=== PATIENT | female | born 1975 | race Two or more races ===

== ENCOUNTER 2018-08-20 13:39 | Emergency (ER) | payer MEDICAID, OTHER ==
[~2018-08-20] VITALS: Ht 160 cm; Wt 77.1 kg
[~2018-08-20 13:39] MED LIST: ALBUPOW26; CIPR-173 OR; DOXY100T51 OR; PREN-96 PO
[2018-08-20 14:15] VITALS: BP 117/75
[2018-08-20] MEDS ORDERED: SODIUM CHLORIDE 0.9% 1,000 ML IV ONE (14:30)
[2018-08-20 16:04] LABS: Urine Bacteria FEW /hpf (None Seen); Urine Blood Negative /uL (Negative); Urine Specific Gravity 1.007 (1.001-1.035); Urine WBC 1 /hpf (0 - 5)
== END 2018-08-20 16:49 | disposition home or self-care (01) ==
LOC: ER 13:39 → EDBD 13:39 → ER 16:49
DX: R55 Syncope and collapse (principal); J45.909 Unspecified asthma, uncomplicated
CPT/HCPCS: 70450; 81001; 82962; 93005; 94761; 99284; J7030

== ENCOUNTER 2019-01-21 08:00 | Emergency (ER) | payer MEDICARE, MEDICAID ==
[~2019-01-21] VITALS: Ht 157.5 cm; Wt 90.3 kg
[2019-01-21] MEDS ORDERED: SODIUM CHLORIDE 0.9% 500 ML IV ONE (09:00)
[2019-01-21] MEDS ORDERED: IPRATROPIUM BROM 0.5 MG/2.5ML INH SOL NEB ONE (09:00)
[2019-01-21] MEDS ORDERED: methylPREDNISolone SOD SUCC 125 MG/2 ML VL IV ONE (09:00)
[2019-01-21] MEDS ORDERED: AZITHROMYCIN 500MG/ 250ML 250 ML IV ONE (09:00)
[2019-01-21] MEDS ORDERED: cefTRIAXone 1GM/50ML D5W 50 ML IV ONE (09:00)
[2019-01-21] MEDS ORDERED: ALBUTEROL SULF 2.5 MG/0.5ML(0.5%) NEB SOLN NEB ONE (09:00)
[2019-01-21 09:23] LABS: Basophils # (auto) 0.1 uL; Basophils % (auto) 0.8 % (0.0-2.0); Eosinophils # (auto) 0.2 uL; Eosinophils % (auto) 1.3 % (0.0-7.0); Hematocrit 42.1 % (36.0-46.0); Hemoglobin 13.6 g/dL (12.2-16.2); Lymphocytes # (auto) 1.6 uL; Lymphocytes % (auto) 12.1 % (10.0-50.0); Mean Corpuscular Hgb Conc. 32.3 g/dL (32.0-36.0); Mean Corpuscular Volume 83.6 fL (80.0-100.0); Monocytes # (auto) 1.2 uL; Monocytes % (auto) 9.3 % (0.0-12.0); Neutrophils # (auto) 10.1 uL; Neutrophils % (auto) 76.5 % (37.0-80.0); Platelet Count (auto) 272 10^3/uL (140-450); Red Blood Cells 5.03 10^6/uL (4.0-5.20); Red Cell Distribution Width 16.9 % (11.8-14.3); White Blood Cell 13.2 10^3/uL (4.4-10.8)
[2019-01-21 09:40] LABS: Albumin 3.3 g/dL (3.4-5.0); Calcium 8.7 mg/dL (8.5-10.1); Potassium 3.3 mmol/L (3.5-5.1)
[2019-01-21 09:42] LABS: BUN/Creatinine Ratio 12.7
[2019-01-21 09:44] LABS: Bilirubin, Total 0.8 mg/dL (0.2-1.0); Total Protein 7.8 g/dL (6.4-8.2)
[2019-01-21 13:03] VITALS: BP 118/64
== END 2019-01-21 13:21 | disposition home or self-care (01) ==
LOC: ER 08:00
DX: J18.9 Pneumonia, unspecified organism (principal); J45.909 Unspecified asthma, uncomplicated
CPT/HCPCS: 36415; 71046; 80053; 81025; 83605; 85025; 87040; 87070; 87205; 94640; 96365; 96366; 96368; 96375; 99284; J0456; J0696; J2930; J7030; J7611; J7644

== ENCOUNTER → 2019-11-14 | Emergency (ER) | payer MEDICARE, MEDICAID ==
[~2019-11-14] VITALS: Ht 160 cm; Wt 98.4 kg
[~2019-11-14] MED LIST changes: +ALBUTEROL SULF 2.5 MG/0.5ML(0.5%) NEB SOLN NEB ONE; +IPRATROPIUM BROM 0.5 MG/2.5ML INH SOL NEB ONE
[2019-11-14 21:04] VITALS: BP 148/78
== END | disposition home or self-care (01) ==
LOC: ER 20:44
DX: J45.901 Unspecified asthma with (acute) exacerbation (principal)
CPT/HCPCS: 94640; 99283; J7644

== ENCOUNTER 2020-01-04 22:52 | Emergency (ER) | payer MEDICARE, MEDICAID ==
[~2020-01-04] VITALS: Ht 160 cm; Wt 95.3 kg
[~2020-01-04 22:52] MED LIST changes: -ALBUTEROL SULF 2.5 MG/0.5ML(0.5%) NEB SOLN NEB ONE; -IPRATROPIUM BROM 0.5 MG/2.5ML INH SOL NEB ONE
[2020-01-05 03:03] VITALS: BP 153/92
== END 2020-01-05 05:50 | disposition home or self-care (01) ==
LOC: ER 22:57
DX: J45.909 Unspecified asthma, uncomplicated (principal); Z20.828 Contact with and (suspected) exposure to other viral communicable diseases
CPT/HCPCS: 71045; 99284; C9803; U0003; 36415

== ENCOUNTER 2020-05-14 18:13 | Emergency (ER) | payer MEDICARE, MEDICAID ==
[~2020-05-14] VITALS: Ht 160 cm; Wt 87.5 kg
[2020-05-14 23:47] VITALS: BP 160/88
== END 2020-05-14 23:51 | disposition home or self-care (01) ==
LOC: ER 18:15
DX: T78.3XXA Angioneurotic edema, initial encounter (principal); T78.40XA Allergy, unspecified, initial encounter; U07.1 COVID-19; E11.9 Type 2 diabetes mellitus without complications; X58.XXXA Exposure to other specified factors, initial encounter; Y93.89 Activity, other specified; Y92.89 Other specified places as the place of occurrence of the external cause; Y99.8 Other external cause status

== ENCOUNTER 2021-07-30 16:38 | Emergency (ER) | payer BC, MEDICAID ==
[~2021-07-30] VITALS: Ht 160 cm; Wt 81.6 kg
[2021-07-30 16:50] VITALS: BP 128/78
[2021-07-30] MEDS ORDERED: KETOROLAC TROMETH 30 MG/ML 1ML VIAL IM ONE (19:15)
[2021-07-30] MEDS ORDERED: ACET-1079 PO (20:53)
[2021-07-30] MEDS ORDERED: IBU600T PO (20:53)
[2021-07-30] MEDS ORDERED: CYCL-614 PO (20:53)
== END 2021-07-30 21:01 | disposition home or self-care (01) ==
LOC: ER 16:38
DX: M62.838 Other muscle spasm (principal); M54.2 Cervicalgia; J45.909 Unspecified asthma, uncomplicated; Z79.2 Long term (current) use of antibiotics; Z79.899 Other long term (current) drug therapy
CPT/HCPCS: 72040; 96372; 99283; J1885

== ENCOUNTER 2021-10-17 03:12 | Emergency (ER) | payer BC, MEDICAID ==
[~2021-10-17] VITALS: Ht 160 cm; Wt 72.6 kg
[~2021-10-17 03:12] MED LIST changes: +ACET-1079 PO; +CYCL-614 PO; +IBU600T PO
[2021-10-17 03:13] VITALS: BP 158/71
[2021-10-17] MEDS ORDERED: ALBUTEROL SULF 2.5 MG/0.5ML(0.5%) NEB SOLN NEB ONE ×2 (03:30→04:30)
[2021-10-17] MEDS ORDERED: IPRATROPIUM BROM 0.5 MG/2.5ML INH SOL NEB ONE ×2 (03:30→04:30)
[2021-10-17] MEDS ORDERED: predniSONE 20 MG TAB PO ONE (04:30)
[2021-10-17] MEDS ORDERED: ALBUAER3 IN (05:10)
[2021-10-17] MEDS ORDERED: PRED20TA2 PO (05:10)
== END 2021-10-17 05:23 | disposition home or self-care (01) ==
LOC: ER 03:12
DX: J45.901 Unspecified asthma with (acute) exacerbation (principal); E11.9 Type 2 diabetes mellitus without complications
CPT/HCPCS: 94640; 99284; J7512; J7644

== ENCOUNTER 2022-05-10 23:45 | Emergency (ER) | payer OTHER, MEDICAID ==
[~2022-05-10] VITALS: Ht 162.6 cm; Wt 90.0 kg
[2022-05-10 23:45] VITALS: BP 173/95
[~2022-05-10 23:45] MED LIST changes: +ALBUAER3 IN; +PRED20TA2 PO
[2022-05-11 02:53] LABS: Basophils # (auto) 0.1 10 ^3/uL (0-0.2); Basophils % (auto) 0.7 % (0.0-2.0); Eosinophils # (auto) 0.1 10 ^3/uL (0-0.8); Eosinophils % (auto) 1.1 % (0.0-7.0); Hematocrit 41.6 % (36.0-46.0); Hemoglobin 14.3 g/dL (12.2-16.2); Lymphocytes # (auto) 1.8 10 ^3/uL (0.4-5.4); Lymphocytes % (auto) 20.2 % (10.0-50.0); Mean Corpuscular Hemoglobin 30.4 pg (28.0-32.0); Mean Corpuscular Hgb Conc. 34.3 g/dL (32.0-36.0); Mean Corpuscular Volume 88.4 fL (80.0-100.0); Monocytes # (auto) 0.6 10 ^3/uL (0-1.3); Monocytes % (auto) 6.3 % (0.0-12.0); Neutrophils # (auto) 6.4 10 ^3/uL (1.6-8.6); Neutrophils % (auto) 71.7 % (37.0-80.0); Nucleated Red Blood Cells % 0.2 %; Red Cell Distribution Width 13.9 % (11.8-14.3); White Blood Cell 8.9 10^3/uL (4.4-10.8)
[2022-05-11 03:07] LABS: Albumin 3.5 g/dL (3.4-5.0); Calcium 8.3 mg/dL (8.5-10.1); Potassium 3.5 mmol/L (3.5-5.1)
[2022-05-11 03:08] LABS: Salicylate < 1.7 mg/dL (2.8-20.0)
[2022-05-11 03:09] LABS: Acetaminophen < 2.0 ug/mL (10-30); BUN/Creatinine Ratio 17.4
[2022-05-11 03:11] LABS: Bilirubin, Total 0.4 mg/dL (0.2-1.0); Total Protein 7.2 g/dL (6.4-8.2)
== END 2022-05-11 12:47 | disposition home or self-care (01) ==
LOC: EDBD 23:45 → ER 05-11 00:02
DX: F10.129 Alcohol abuse with intoxication, unspecified (principal); E11.9 Type 2 diabetes mellitus without complications; J45.909 Unspecified asthma, uncomplicated; Z79.2 Long term (current) use of antibiotics; Z79.899 Other long term (current) drug therapy; Y90.6 Blood alcohol level of 120-199 mg/100 ml
CPT/HCPCS: 36415; 80053; 80320; 80329; 85025

== ENCOUNTER 2023-05-27 22:34 | Emergency (ER) | payer OTHER ==
[~2023-05-27] VITALS: Ht 160 cm; Wt 88.9 kg
[2023-05-27] MEDS ORDERED: IPRATROPIUM BROM 0.5 MG/2.5ML INH SOL NEB ONE (23:15)
[2023-05-27] MEDS ORDERED: ALBUTEROL SULF 2.5 MG/0.5ML(0.5%) NEB SOLN NEB ONE (23:15)
[2023-05-27 23:36] LABS: Hemoglobin 13.7 g/dL (12.2-16.2); White Blood Cell 9.8 10^3/uL (4.4-10.8)
[2023-05-27 23:38] LABS: Hematocrit 42.2 % (36.0-46.0); Mean Corpuscular Hemoglobin 26.3 pg (28.0-32.0); Mean Corpuscular Hgb Conc. 32.4 g/dL (32.0-36.0); Mean Corpuscular Volume 81.4 fL (80.0-100.0); Red Blood Cells 5.19 10^6/uL (4.0-5.20); Red Cell Distribution Width 17.1 % (11.8-14.3)
[2023-05-27 23:42] LABS: Basophils % (manual) 0 (0.0-2.0); Blast Cells 0; Metamyelocytes % 0; Promyelocytes % 0; Reactive Lymphocytes 0
[2023-05-27 23:53] LABS: Alanine Aminotransferase 19 U/L (7-40); Albumin 4.2 g/dL (3.2-4.8); Alkaline Phosphatase 83 U/L (46-116); Anion Gap 3 (5-15); Aspartate Aminotransferase 17 U/L (13-40); BUN/Creatinine Ratio 11.1 (10.0-20.0); Bilirubin, Total 0.5 mg/dL (0.2-1.0); Blood Urea Nitrogen 6 mg/dL (9-23); Calcium 8.9 mg/dL (8.7-10.4); Carbon Dioxide 30 mmol/L (20-30); Chloride 107 mmol/L (98-107); Glucose 110 mg/dL (74-106); Potassium 3.9 mmol/L (3.5-5.1); Sodium 140 mmol/L (136-145)
[2023-05-27 23:54] LABS: Total Protein 7.3 g/dL (5.7-8.2)
[2023-05-28 00:20] LABS: Band Neutrophils % (manual) 9; Eosinophils % (manual) 18 (0-7); Lymphocytes % (manual) 10 (10.0-50.0); Monocytes % (manual) 3 (0-12); Myelocytes % 1
[2023-05-28 00:21] LABS: Platelet Estimate Adequate
[2023-05-28] MEDS ORDERED: DEXTROSE (50%) 50ML SYRG IV PRN (00:30)
[2023-05-28] MEDS ORDERED: CEFTRIAXONE SODIUM 2 GM in D5W 5% 100 ML IV ONE (00:30)
[2023-05-28] MEDS ORDERED: ACETAMINOPHEN 325 MG TAB PO PRN (00:30)
[2023-05-28] MEDS ORDERED: AZITHROMYCIN 500MG/ 250ML 250 ML IV ONE (00:30)
[2023-05-28] MEDS ORDERED: ALBUTEROL SULF 2.5 MG/0.5ML(0.5%) NEB SOLN NEB PRN (00:30)
[2023-05-28] MEDS ORDERED: IPRATROPIUM BROM 0.5 MG/2.5ML INH SOL NEB PRN (00:30)
[2023-05-28] MEDS ORDERED: ONDANSETRON HCL 4 MG/2 ML VIAL IV PRN (00:30)
[2023-05-28 00:59] VITALS: BP 160/95; PULSE 78; RESP 20; TEMP 98; O2SAT 98
[2023-05-28 01:36] VITALS: PULSE 76; RESP 20; O2SAT 97
[2023-05-28] MEDS ORDERED: cefTRIAXone SOD 1,000 MG VL ONE (01:52)
[2023-05-28] MEDS ORDERED: cloNIDine HCL 0.1 MG TAB PO PRN (02:30)
[2023-05-28 02:55] LABS: Rapid Influenza A Negative (Negative); Rapid Influenza B Negative (Negative)
[2023-05-28] MEDS ORDERED: METH4PAK PO (02:55)
[2023-05-28] MEDS ORDERED: BUDE1AER5 IN (02:55)
[2023-05-28] MEDS ORDERED: AUG875T PO (02:55)
[2023-05-28] MEDS ORDERED: ALBUAER3 IN (02:55)
[2023-05-28 02:56] LABS: COVID19 ANTIGEN SOFIA FIA NEGATIVE (NEGATIVE)
[2023-05-28] MEDS ORDERED: methylPREDNISolone SOD SUCC 125 MG/2 ML VL IV ONE (03:15)
[2023-05-28 05:11] VITALS: BP 155/84; PULSE 82; RESP 15; TEMP 98.9; O2SAT 96
[2023-05-28 05:22] LABS: Urine Bacteria FEW /hpf (None Seen); Urine Blood Negative /uL (Negative); Urine Clarity Clear (Clear); Urine Color Colorless (Yellow); Urine Protein, UAD Negative (Negative); Urine Urobilinogen Normal (Negative); Urine WBC 2 /hpf (0 - 5); Urine pH 6.5 (5.0-8.0)
[2023-05-28] MEDS ORDERED: ACCU-CHEK COMFORT CURVE STRIP VI SCH (07:00)
[2023-05-28] MEDS ORDERED: InsuLIN REG 1unit/0.01ml Soln (100units/ml) SC SCH (07:00)
[2023-05-28] MEDS ORDERED: cefTRIAXone 1GM/50ML D5W 50 ML IV SCH (09:00)
[2023-05-28] MEDS ORDERED: AZITHROMYCIN 500MG/ 250ML 250 ML IV SCH (10:00)
== END 2023-05-28 05:15 | disposition home or self-care (01) ==
LOC: ER 22:34
DX: J18.9 Pneumonia, unspecified organism (principal); E11.9 Type 2 diabetes mellitus without complications; J45.909 Unspecified asthma, uncomplicated; R07.89 Other chest pain; Z20.822 Contact with and (suspected) exposure to COVID-19
CPT/HCPCS: 36415; 71045; 80053; 81001; 83605; 83880; 84484; 85007; 85027; 85379; 87040; 87426; 87804; 93005; 94640; 96365; 96366; 96367; 96375; 99285; J0456; J0696; J2930; J7060; J7644

== ENCOUNTER 2024-05-14 22:52 | Emergency (ER) | payer OTHER ==
[~2024-05-14] VITALS: Ht 160 cm; Wt 86.3 kg
[~2024-05-14 22:52] MED LIST changes: +AUG875T PO; +BACDST PO; +BUDE1AER5 IN; +IBUP-1456 PO; +METH4PAK PO
--- NOTE | 2024-05-14 23:13 | ED.PDOC ---
SOB-HPI HPI Comments 48-year-old female came to ER due to shortness of breath. Patient does have history of asthma. States few hours ago, cough with shortness of breath and wheezing. She ran out of albuterol inhalers at home so she decided the to the ER to prevent the asthma for worsening. Patient denies recent fever or sputum production. 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 Family History Family History: Reviewed,noncontributory to illness Social History Smoker: Non-Smoker Alcohol: Denies ETOH Use Drugs: Denies Drug Use Lives In: Home Constitutional: denies: chills, diaphoresis, fatigue, fever, malaise, sweats, weakness, others EENTM: denies: blurred vision, double vision, ear bleeding, ear discharge, ear drainage, ear pain, ear ringing, eye pain, eye redness, hearing loss, mouth pain, mouth swelling, nasal discharge, nose bleeding, nose congestion, nose pain, photophobia, tearing, throat pain, throat swelling, voice changes, others Respiratory: reports: cough, SOB at rest, shortness of breath, wheezing; denies: hemoptysis, orthopnea, SOB with excertion, stridor, others Cardiovascular: denies: chest pain, dizzy spells, diaphoresis, Dyspnea on exertion, edema, irregular heart beat, left arm pain, lightheadedness, palpitations, PND, syncope, others Gastrointestinal: denies: abdomen distended, abdominal pain, blood streaked bowels, constipated, diarrhea, dysphagia, difficulty swallowing, hematemesis, melena, nausea, poor appetite, poor fluid intake, rectal bleeding, rectal pain, vomiting, others Genitourinary: denies: abnormal vagina bleeding, burning, dyspareunia, dysuria, flank pain, frequency, hematuria, incontinence, pain, , vagina discharg e, urgency, others Neurological: denies: dizziness, fainting, headache, left sided numbness, left sided weakness, numbness, paresthesia, pre-existing deficit, right sided numbness, right sided weakness, seizure, speech problems, tingling, tremors, weakness, others Musculoskeletal: denies: back pain, gout, joint pain, joint swelling, muscle pain, muscle stiffness, neck pain, others Integumetry: denies: bruises, change in color, change in hair/nails, dryness, laceration, lesions, lumps, rash, wounds, others Allergic/Immunocompromised: denies: Difficulty Healing, Frequent Infections, Hives, Itching, others Hematologic/Lymphatic: denies: anemia, blood clots, easy bleeding, easy bruising, swollen glands, others Endocrine: denies: excessive hunger, excessive sweating, excessive thirst, excessive urination, flushing, intolerance to cold, intolerance to heat, unexplained weight gain, unexplained weight loss, others Psychiatric: denies: anxiety, bipolar disorder, depression, hopeless, panic d isorder, schizophrenia, sleepless, suicidal, others Physical Exam General Appearance: No Apparent Distress HEENT: Other (Unremarkable) Neck: Full Range of Motion, Normal Inspection Respiratory: No Accessory Muscle Use, No Respiratory Distress, Wheezing Cardiovascular: No Edema, No JVD, Regular Rate/Rhythm Breast Exam: Deferred Gastrointestinal: Non Tender, Soft Genitalia: Deferred Pelvic: Deferred Rectal: Deferred Extremities: Normal inspection, Normal range of motion, Non-tender, No pedal edema Neurologic: Alert (Oriented x4), Normal Affect, Normal Mood, Other (Ambulatory without difficulty. No gross focal deficit.) Cerebellar Function: NOT DONE Reflexes: NOT DONE Skin: Dry, Normal Color, Warm Lymphatic: NOT DONE Was a procedure done? Was a procedure done?: No Differential Dx Differential Diagnosis: Asthma, Bronchitis, COPD, Pneumonia, Respiratory Distress X-Ray, Labs, Meds, VS Vital Signs Date Time Temp Pulse Resp B/P (MAP) Pulse Ox O2 Delivery O2 Flow Rate FiO2 05/15/24 00:55 18 95 Room Air* 0 21 05/14/24 23:26 22 96 Room Air* 0 21 05/14/24 23:05 98.5 79 18 147/70 (95) 93 05/14/24 23:05 18 93 Room Air* 0 21 Current Medications Medications (Trade) Dose Ordered Sig/Tea Route Start Time Stop Time Status Last Admin Albuterol (Ventolin Medneb) 5 mg ONCE ONCE NEB 05/14/24 23:00 05/14/24 23:01 DC 05/14/24 23:26 Ipratropium [place] (Atrovent Medneb) 0.5 mg ONCE ONCE NEB 05/14/24 23:00 05/14/24 23:01 DC 05/14/24 23:26 Dexamethasone Sodium Phosphate (Decadron Injection) 10 mg ONCE ONCE IM 05/14/24 23:00 05/14/24 23:01 DC 05/15/24 00:49 Albuterol (Ventolin Medneb) 5 mg ONCE ONCE NEB 05/15/24 00:45 05/15/24 00:46 DC 05/15/24 00:54 Ipratropium [place] (Atrovent Medneb) 0.5 mg ONCE ONCE NEB 05/15/24 00:45 05/15/24 00:46 DC 05/15/24 00:54 X-Ray, Labs, Meds, VS Comment 48-year-old female with a history of asthma complaining of difficulty breathing after running out of her inhaler Vitals remarkable for oxygen saturation 93% on room air Exam remarkable for wheezing without respiratory distress Rhythm strip independently interpreted by me: Sinus rhythm, rate 79, no ectopy. Patient treated with the following in the ED: Albuterol 5 mg/Atrovent 0.5 mg nebulized x2, dexamethasone 10 mg IM On re-evaluation, patient states she is feeling much better and vitals are stable, including oxygen saturation which is 95% on room air. Hospitalization was considered, however patient had rapid improvement of symptoms with treatment in the ED, and I no longer feel hospitalization is necessary. Patient now appears stable for outpatient treatment with close follow-up with her primary physician. Rx albuterol Time of 1ST Reevaluation: 23:10 Reevaluation 1ST: Unchanged Time of 2ND Reevaluation: 01:11 Reevaluation 2ND: Improved Patient Education/Counseling: Diagnosis, Treatment Family Education/Counseling: No Family Present Departure 1 Departure Time of Disposition: 01:11 Impression: Primary Impression: Asthma exacerbation Qualified Codes: J45.901 - Unspecified asthma with (acute) exacerbation Disposition: 01 HOME / SELF CARE / HOMELESS Condition: Stable Additional Instructions: Follow-up with your primary doctor in 1-2 days. I have prescribed an inhaler. e-Prescriptions Albuterol Sulfate (Albuterol Sulfate Hfa) 108 Mcg/Act Aer 2 PUFF IN Q6HP PRN, #1 AER Prov: PARDEEP HANSON MD 05/15/24 Discharged With: Self Critical Care Note Critical Care Time?: No Stability Stability form required: No Heart Score Heart Score: Heart Score Response (Comments) Value History N/A 0 EKG N/A 0 Age N/A 0 Risk Factors N/A 0 Troponin N/A 0 Total 0 I personally scribed for PARDEEP HANSON MD ([email or web address]) on 05/14/24 at 23:13. Electronically submitted by Sunil Navarro ([email or web address]). PARDEEP HANSON MD May 14, 2024 23:13
[2024-05-14] MEDS: ALBUTEROL SULF 2.5 MG/0.5ML(0.5%) NEB SOLN NEB ONE (23:26)
[2024-05-14] MEDS: IPRATROPIUM BROM 0.5 MG/2.5ML INH SOL NEB ONE (23:26)
[2024-05-15] MEDS: DexAMETHasone SOD PHOS 10MG/1ML VIAL INJ IM ONE (00:49)
[2024-05-15] MEDS: ALBUTEROL SULF 2.5 MG/0.5ML(0.5%) NEB SOLN NEB ONE (00:54)
[2024-05-15] MEDS: IPRATROPIUM BROM 0.5 MG/2.5ML INH SOL NEB ONE (00:54)
[2024-05-15] MEDS ORDERED: ALBU108A5 IN (01:12)
[2024-05-15 01:43] VITALS: BP 133/66; PULSE 96; RESP 18; O2SAT 94
== END 2024-05-15 01:48 | disposition home or self-care (01) ==
LOC: ER 22:52
DX: J45.901 Unspecified asthma with (acute) exacerbation (principal); E11.9 Type 2 diabetes mellitus without complications; Z79.52 Long term (current) use of systemic steroids
CPT/HCPCS: 94640; 96372; 99284; J1100

== ENCOUNTER 2025-04-13 19:48 | Emergency (ER) | payer OTHER ==
[~2025-04-13] VITALS: Ht 157.5 cm; Wt 90.4 kg
[~2025-04-13 19:48] MED LIST changes: +ALBU108A5 IN
[2025-04-13] MEDS ORDERED: methylPREDNISolone SOD SUCC 125 MG/2 ML VL IV ONE (20:15)
--- NOTE | 2025-04-13 20:16 | ED.PDOC ---
History of Present Illness HPI Comments 49F presents to the ER w/ prior MHx of DM, HTN, Thyroid, Asthma and the c/c of SOB. Pt reports on having had SOB which comes/goes and started yesterday associated w/ coughing. Pt notes on having a sudden onset of sharp upper left sided back pain. Denies any symptoms at this time. Patient denies any CP, dizzi ness, numbness, weakness, tingling, fever, chills, or recent fall. Chief Complaint: Shortness of Breath Time Seen by MD: 20:15 Primary Care Provider: UNKNOWN Reviewed Notes: Nurses Notes, Medications, Allergies Allergies: Coded Allergies: NO KNOWN ALLERGIES (Unverified , 12/24/09) Home Meds Active Scripts Azithromycin (Zithromax) 1 Gm Pow, 1 PACK PO ONCE, #1 PACK Prov:ZAHRA ROMERO MD 04/13/25 Methylprednisolone (Medrol Dosepak) 4 Mg Torey, 4 MG PO UD, #21 TAB UAD Prov:ZAHRA ROMERO MD 04/13/25 Albuterol Sulfate (VENTOLIN MDI) 90 Mcg Ih, 90 MCG IN PRN, #1 INH 1 Refill 1-2 puffs PRN Q 4 hours as needed for Shortnesso of breath or wheezing Prov:ZAHRA ROMERO MD 04/13/25 Albuterol Sulfate (Albuterol Sulfate Hfa) 108 Mcg/Act Aer, 2 PUFF IN Q6HP PRN, #1 AER Prov:PARDEEP HANSON MD 05/15/24 Ibuprofen (Ibuprofen) 800 Mg Tab, 1 TAB PO TID, #30 TAB Prov:ALEXIS BARRERA 08/15/23 Sulfamethoxazole W/Trimethopri (Bactrim Ds Tablet) 1 Tab Tb, 1 TAB PO BID, #20 TAB Prov:ALEXIS BARRERA 08/15/23 Budesonide-Formoterol Fumarate (Budesonide/Formoterol Fum 80-4.5 Mcg/Act) 1 Aer Aer, 2 AER IN BID for 30 Days, #1 AER 1 Refill Prov:MIKHAIL CHI MD 05/28/23 Amoxicillin & Pot Clavulanate (AUGMENTIN TABLET) 875 Mg Tb, 875 MG PO BID for 10 Days, #20 TAB Prov:MIKHAIL CHI MD 05/28/23 Prednisone (Prednisone) 20 Mg Tab, 60 MG PO DAILY for 7 Days, #21 MG 0 Refills Prov:MUMTAZ MCINTOSH 10/17/21 Acetaminophen (Tylenol) 325 Mg Tb, 975 MG PO Q6HP PRN for 14 Days, #168 TAB 0 Refills Prov:HILARIO GALVAN DO 07/30/21 Ibuprofen Micronized (MOTRIN TABLET) 600 Mg Tb, 600 MG PO TID PRN for 14 Days, #42 TAB 0 Refills *Black box warning-NSAIDS can increase risk of AR & hypertension, GI irritation, ulceration, bleed, perferation. Do not use post cardiac surgery. Use short duration/lowest effective dose. Prov:HILARIO GALVAN DO 07/30/21 Cyclobenzaprine HCl (Cyclobenzaprine Hydrochlo) 5 Mg Tab, 5 MG PO TID PRN for 7 Days, #21 TAB 0 Refills Prov:HILARIO GALVAN DO 07/30/21 Reported Medications Vit W/ Ferrous Fumara ( One Daily) Daily Tab, 1 TAB PO DAILY, #90 TAB 3 Refills 12/27/13 Ciprofloxacin Hcl (Cipro) 500 Mg Tab, 500 MG OR BID 04/18/11 Doxycycline (Monohydrate) (Avidoxy) 100 Mg Tab, 100 MG OR BID 04/18/11 Albuterol (Albuterol) Pow 12/24/09 Information Source: Patient Mode of Arrival: Ambulatory Severity: Moderate Timing: Hours Duration: Since onset, Hours Prehospital treatment: None Past Medical History PAST MEDICAL HISTORY: Asthma, DM, HTN, Thyroid Surgical History: Denies all surgeries 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 Family History Family History: Reviewed,noncontributory to illness, Unknown Social History Smoker: Non-Smoker Alcohol: Denies ETOH Use Drugs: Denies Drug Use Lives In: Home Constitutional: denies: chills, diaphoresis, fatigue, fever, malaise, sweats, weakness, others EENTM: denies: blurred vision, double vision, ear bleeding, ear discharge, ear drainage, ear pain, ear ringing, eye pain, eye redness, hearing loss, mouth pain, mouth swelling, nasal discharge, nose bleeding, nose congestion, nose pain, photophobia, tearing, throat pain, throat swelling, voice changes, others Respiratory: reports: cough, shortness of breath; denies: hemoptysis, orthopnea, SOB at rest, SOB with excertion, stridor, wheezing, others Cardiovascular: denies: chest pain, dizzy spells, diaphoresis, Dyspnea on exertion, edema, irregular heart beat, left arm pain, lightheadedness, palpitations, PND, syncope, others Gastrointestinal: denies: abdomen distended, abdominal pain, blood streaked bowels, constipated, diarrhea, dysphagia, difficulty swallowing, hematemesis, melena, nausea, poor appetite, poor fluid intake, rectal bleeding, rectal pain, vomiting, others Genitourinary: denies: abnormal vagina bleeding, burning, dyspareunia, dysuria, flank pain, frequency, hematuria, incontinence, pain, , vagina discharge, urgency, others Neurological: denies: dizziness, fainting, headache, left sided numbness, left sided weakness, numbness, paresthesia, pre-existing deficit, right sided numbness, right sided weakness, seizure, speech problems, tingling, tremors, weakness, others Musculoskeletal: denies: back pain, gout, joint pain, joint swelling, muscle pain, muscle stiffness, neck pain, others Integumetry: denies: bruises, change in color, change in hair/nails, dryness, laceration, lesions, lumps, rash, wounds, others Allergic/Immunocompromised: denies: Difficulty Healing, Frequent Infections, Hives, Itching, others Hematologic/Lymphatic: denies: anemia, blood clots, easy bleeding, easy bruising, swollen glands, others Endocrine: denies: excessive hunger, excessive sweating, excessive thirst, excessive urination, flushing, intolerance to cold, intolerance to heat, unexplained weight gain, unexplained weight loss, others Psychiatric: denies: anxiety, bipolar disorder, depression, hopeless, panic disorder, schizophrenia, sleepless, suicidal, others All Other Systems: Reviewed and Negative Physical Exam General Appearance: Moderate Distress HEENT: Normal ENT Inspection, Pharynx Normal, TMs Normal Neck: Full Range of Motion, Non-Tender, Normal, Normal Inspection Respiratory: Chest Non-Tender, Decreased Breath Sounds, No Accessory Muscle Use, Respiratory Distress, Wheezing Cardiovascular: No Edema, No JVD, No Murmur, No Gallop, Normal Peripheral Pulses, Regular Rate/Rhythm Breast Exam: Deferred Gastrointestinal: No Organomegaly, Non Tender, No Pulsatile Mass, Normal Bowel Sounds, Soft Genitalia: Deferred Pelvic: Deferred Rectal: Deferred Extremities: No calf tenderness, Normal capillary refill, Normal inspection, Normal range of motion, Non-tender, No pedal edema Musculoskeletal : Apperance: Normal Neurologic: Alert, cottage cheese maker II-XII nml as Tested, No Motor Deficits, Normal Affect, Normal Mood, No Sensory Deficits Cerebellar Function: Normal Reflexes: Normal Skin: Dry, Normal Color, Warm Lymphatic: No Adenopathy Was a procedure done? Was a procedure done?: No Differential Dx Considerations may include: Asthma exacerbation, asthmatic bronchitis, pneumonia X-Ray, Labs, Meds, VS Vital Signs Date Time Temp Pulse Resp B/P (MAP) Pulse Ox O2 Delivery O2 Flow Rate FiO2 04/13/25 19:52 98.9 89 16 133/93 94 98.9 Lab Test 04/13/25 20:29 Range/Units White Blood Count 8.6 4.4-10.8 10^3/uL Red Blood Count 5.20 4.0-5.20 10^6/uL Hemoglobin 14.7 12.2-16.2 g/dL Hematocrit 44.5 36.0-46.0 % Mean Corpuscular Volume 85.5 80.0-100.0 fL Mean Corpuscular Hemoglobin 28.2 28.0-32.0 pg Mean Corpuscular Hemoglobin Concent 33.0 32.0-36.0 g/dL Red Cell Distribution Width 14.9 H 11.8-14.3 % Platelet Count 247 140-450 10^3/uL Mean Platelet Volume 8.3 6.9-10.8 fL Neutrophils (%) (Auto) 64.6 37.0-80.0 % Lymphocytes (%) (Auto) 23.9 10.0-50.0 % Monocytes (%) (Auto) 6.6 0.0-12.0 % Eosinophils (%) (Auto) 4.2 0.0-7.0 % Basophils (%) (Auto) 0.7 0.0-2.0 % Neutrophils # (Auto) 5.6 1.6-8.6 10 ^3/uL Lymphocytes # (Auto) 2.1 0.4-5.4 10 ^3/uL Monocytes # (Auto) 0.6 0-1.3 10 ^3/uL Eosinophils # (Auto) 0.4 0-0.8 10 ^3/uL Basophils # (Auto) 0.1 0-0.2 10 ^3/uL Nucleated Red Blood Cells 0.1 % Sodium Level 141 136-145 mmol/L Potassium Level 3.8 3.5-5.1 mmol/L Chloride Level 105 98-107 mmol/L Carbon Dioxide Level 27 20-31 mmol/L Anion Gap 9 5-15 Blood Urea Nitrogen 8 L 9-23 mg/dL Creatinine 0.65 0.550-1.02 mg/dL Glomerular Filtration Rate Calc 108 >90 mL/min BUN/Creatinine Ratio 12.3 10.0-20.0 Serum Glucose 131 H 74-106 mg/dL Calcium Level 9.0 8.7-10.4 mg/dL Time of 1ST Reevaluation: 20:45 Reevaluation 1ST: Unchanged Patient Education/Counseling: Diagnosis, Treatment, Prognosis Family Education/Counseling: No Family Present SEPSIS Sepsis Screen Date sepsis recognized/suspect: Apr 13, 2025 Time Sepsis recognized/suspect: 1953 Recent Procedure: No On Antibiotic Therapy: No Respiratory Rate >20: No Heart Rate >90: No Temp<36 C (96.8 F) or >38.3 C: No SBP <90 or MAP <65 mmHG: No New Acute Mental Status Change: No Is the patient on CPAP, BIPAP,: No Physician Orders Med Neb Initial Treatment (04/13/25 20:13) Chest Portable (04/13/25 20:13) Vital Signs Date Time Temp Pulse Resp B/P (MAP) Pulse Ox O2 Delivery O2 Flow Rate FiO2 04/13/25 19:52 98.9 89 16 133/93 94 98.9 Laboratory Tests Test 04/13/25 20:29 White Blood Count 8.6 10^3/uL (4.4-10.8) Departure 1 Departure Time of Disposition: 21:17 Impression: Primary Impression: Asthmatic bronchitis Qualified Codes: J45.41 - Moderate persistent asthma with (acute) exacerbation Disposition: HOME / SELF CARE / HOMELESS Condition: Fair e-Prescriptions Azithromycin (Zithromax) 1 Gm Pow 1 PACK PO ONCE, #1 PACK Prov: ZAHRA ROMERO MD 04/13/25 Methylprednisolone (Medrol Dosepak) 4 Mg Torey 4 MG PO UD, #21 TAB UAD Prov: ZAHRA ROMERO MD 04/13/25 Albuterol Sulfate (VENTOLIN BARBI) 90 Mcg Ih 90 MCG IN PRN, #1 INH 1 Refill 1-2 puffs PRN Q 4 hours as needed for Shortnesso of breath or wheezing Prov: ZAHRA ROMERO MD 04/13/25 Discharged With: Self Critical Care Note Critical Care Time?: No Stability Stability form required: No Heart Score Heart Score: Heart Score Response (Comments) Value History N/A 0 EKG N/A 0 Age N/A 0 Risk Factors N/A 0 Troponin N/A 0 Total 0 I personally scribed for ZAHRA ROMERO MD ([email or web address]) on 04/13/25 at 20:16. Electronically submitted by Ollie Mora ([email or web address]). ZAHRA ROMERO MD Apr 13, 2025 20:16
[2025-04-13 20:43] LABS: Hematocrit 44.5 % (36.0-46.0); Hemoglobin 14.7 g/dL (12.2-16.2); Mean Corpuscular Hemoglobin 28.2 pg (28.0-32.0); Mean Corpuscular Volume 85.5 fL (80.0-100.0); Nucleated Red Blood Cells % 0.1 %
[2025-04-13 20:49] LABS: Chloride 105 mmol/L (98-107); Potassium 3.8 mmol/L (3.5-5.1); Sodium 141 mmol/L (136-145)
[2025-04-13 20:50] LABS: Anion Gap 9 (5-15); Calcium 9.0 mg/dL (8.7-10.4); Carbon Dioxide 27 mmol/L (20-31)
[2025-04-13 20:55] LABS: BUN/Creatinine Ratio 12.3 (10.0-20.0)
[2025-04-13 20:56] LABS: Blood Urea Nitrogen 8 mg/dL (9-23); Glucose 131 mg/dL (74-106)
--- NOTE | 2025-04-13 21:14 | DVH ---
CLINICAL HISTORY: sob TECHNIQUE: Single view of the chest was obtained. COMPARISON: XY CHEST PORTABLE on DOS: 05/27/23, CHEST PORTABLE on DOS: 01/05/20 FINDINGS: The heart size is normal with interstitial thickening. There is bilateral upper lung linear scarring. IMPRESSION: Interstitial thickening, which may represent mild pulmonary vascular congestion or scarring from previous lung injury.
[2025-04-13] MEDS ORDERED: ALBUAER3 IN (21:15)
[2025-04-13] MEDS ORDERED: METH4PAK PO (21:15)
[2025-04-13] MEDS ORDERED: AZIT1POW PO (21:15)
[2025-04-13] MEDS: IPRATROPIUM BROM 0.5 MG/2.5ML INH SOL HHN ONE (21:18)
[2025-04-13] MEDS: ALBUTEROL SULF 2.5 MG/0.5ML(0.5%) NEB SOLN HHN ONE (21:18)
[2025-04-13 23:47] VITALS: BP 153/98; PULSE 100; RESP 18; TEMP 98; O2SAT 98
[2025-04-13] MEDS: methylPREDNISolone SOD SUCC 125 MG/2 ML VL IM ONE (23:53)
== END 2025-04-13 23:52 | disposition home or self-care (01) ==
LOC: ER 19:48
DX: J45.909 Unspecified asthma, uncomplicated (principal); E11.9 Type 2 diabetes mellitus without complications; I10 Essential (primary) hypertension; Z79.899 Other long term (current) drug therapy
CPT/HCPCS: 36415; 71045; 80048; 85025; 94640; 96372; 99284; J2919